=== PATIENT | male | born 1995 | race Caucasian/White ===

== ENCOUNTER → 2023-11-27 16:50 | Outpatient (REF) | payer OTHER, SELFPAY | LOC: PAVMRI 16:50 | PROVIDERS: ATTENDING PHYSICIAN Orthopaedic Surgery Sports Medicine; FAMILY PHYSICIAN Family Medicine | DX: M25.562 Pain in left knee (principal); M23.307 Other meniscus derangements, unspecified meniscus, left knee | CPT/HCPCS: 73721 ==

== ENCOUNTER → 2024-02-04 14:56 | Outpatient (REF) | payer OTHER, SELFPAY | LOC: MRI 3T 14:56 | PROVIDERS: ATTENDING PHYSICIAN Family Medicine | DX: M54.41 Lumbago with sciatica, right side (principal) | CPT/HCPCS: 72148 ==

== ENCOUNTER → 2025-01-20 06:51 | Outpatient (REF) | payer OTHER, SELFPAY | LOC: PAVMRI 06:51 | PROVIDERS: ATTENDING PHYSICIAN Student in an Organized Health Care Education/Training Program | DX: M54.16 Radiculopathy, lumbar region (principal) | CPT/HCPCS: 72149 ==